=== PATIENT | male | born 1950 | race Hispanic/Latino ===

== ENCOUNTER 2017-05-24 09:22 | Inpatient (IN) | payer BC, MEDICARE ==
--- NOTE | 2017-05-24 09:51 | C.PDOC ---
History Of Present Illness 67 y/o M c PMHx CABG, mitral valve replacement, DM, Afib on warfarin p/w dizziness approximately 1 hour ago. Patient states he was sitting at a low table , stood up, and felt dizzy. He was seen by another staff member who had him sit down and then go to the nurse. He denies chest pain, dyspnea, LOC, fall, recent vomiting/diarrhea, bleeding. Notes he forgot to take DM medication today, FS in nurse's office was 200+. No PMD or science faculty member at this institution. Time Seen by Provider: 05/24/17 09:27 Chief Complaint (Nursing): Dizziness/Lightheaded Past Medical History Vital Signs: Last Vital Signs Temp 97.7 F 05/24/17 09:25 Pulse 58 L 05/24/17 09:25 Resp 18 05/24/17 09:25 BP 138/76 05/24/17 09:25 Pulse Ox 96 05/24/17 09:59 - Medical History PMH: Cardia Arrhythmia, CHF, HTN Family History: States: No Known Family Hx - Social History Hx Alcohol Use: No Hx Substance Use: No - Immunization History Hx Tetanus Toxoid Vaccination: No Hx Influenza Vaccination: Yes (2017) Hx Pneumococcal Vaccination: No Review Of Systems Except As Marked, All Systems Reviewed And Found Negative. Constitutional: Negative for: Fever Cardiovascular: Negative for: Chest Pain Respiratory: Negative for: Shortness of Breath Physical Exam - Physical Exam Additional Physical Exam Comments: Gen: NAD. Patient reproducibly symptomatic with standing. Head: NC/AT Eyes: PERRL ENT: MMM Neck: Supple CV: Radial pulses 2+. Bradycardic. Lungs: CTA bilaterally, no crackles. Abd: Soft. Nontender. Ext: Pitting edema bilateral lower extremities. Skin: Erythematous, papular rash to bilateral forearms. Neuro: Awake, alert, motor 5/5 x 4, sensation to light touch intact. ED Course And Treatment - Laboratory Results Result Diagrams: 05/24/17 10:08 05/24/17 10:08 O2 Sat by Pulse Oximetry: 96 Medical Decision Making Medical Decision Making: EKG Sinus rhythm, 53 bpm, no ST/T wave changes. Impression: 67 y/o M c history of significant cardiac disease, bradycardic with lightheadedness upon standing. Differential includes: Vascular insufficiency, symptomatic bradycardia, dehydration. Plan: Labs, CXR, orthostatic vital signs. SBP drop 20 when standing. CXR IMPRESSION: Prior CABG. No acute infiltrate. Crowding of bronchovascular markings appears at the medial right base, borderline on the left. No definitive infiltrate or pleural effusion. Enzymes negative. Patient notes previous history of CKD. Dr. George accepts patient to medical service, medical records secretary notified. Disposition Discussed With : Han George Jr. Doctor Will See Patient In The: Hospital - Disposition Disposition: HOSPITALIZED Disposition Time: 11:30 Condition: FAIR Forms: [facility] (Peruvian) - Clinical Impression Clinical Impression: Near syncope, Symptomatic bradycardia, Orthostatic dizziness
[2017-05-24 10:20] LABS: BASO # 0.1 K/uL (0.0-0.2); BASO % 0.8 % (0.0-2.0); EOS # 0.2 K/uL (0.0-0.7); EOS % 2.3 % (0.0-4.0); HEMATOCRIT 38.4 % (35.0-51.0); LYMPH # 1.3 K/uL (1.0-4.3); LYMPH % 16.7 % (20.0-40.0); MEAN CELL VOLUME 91.6 fL (80.0-94.0); MEAN CORPUSCULAR HEMOGLOBIN 31.4 pg (27.0-31.0); MEAN CORPUSCULAR HGB CONC 34.3 g/dL (33.0-37.0); MEAN PLATELET VOLUME 9.8 fL (7.2-11.7); MONO # 0.8 K/uL (0.0-0.8); MONO % 9.9 % (0.0-10.0); RED CELL DISTRIBUTION WIDTH 13.5 % (11.5-14.5); WHITE BLOOD COUNT 7.8 K/uL (4.8-10.8)
--- NOTE | 2017-05-24 10:24 | RAD ---
HISTORY: lightheadedness COMPARISON: No prior. FINDINGS: LUNGS: There is some crowding of the bronchovascular markings particularly at the medial right base on the basis of diminished inspiratory volume. PLEURA: No significant pleural effusion identified, no pneumothorax apparent. CARDIOVASCULAR: Sternotomy wires are identified status post CABG. Cardiac size appears normal. There is no pulmonary vascular derangement appreciated. OSSEOUS STRUCTURES: No significant abnormalities. VISUALIZED UPPER ABDOMEN: Normal. OTHER FINDINGS: None. IMPRESSION: Prior CABG. No acute infiltrate. Crowding of bronchovascular markings appears at the medial right base, borderline on the left. No definitive infiltrate or pleural effusion.
[2017-05-24 10:33] LABS: BILIRUBIN,TOTAL 0.7 mg/dL (0.2-1.3); CALCIUM 9.3 mg/dl (8.6-10.4); POTASSIUM 4.7 mmol/L (3.6-5.2); TOTAL PROTEIN 8.7 g/dL (6.3-8.3)
[2017-05-24 10:44] LABS: TROPONIN I 0.013 ng/mL (0.00-0.120)
[2017-05-24 11:56] LABS: RBC URINE < 1 /hpf (0-3); URINE BILIRUBIN NEGATIVE (NEGATIVE); URINE BLOOD NEGATIVE (NEGATIVE); URINE COLOR Yellow (YELLOW); URINE GLUCOSE (UA) NORMAL (Normal); URINE KETONE NEGATIVE (NEGATIVE); URINE LEUKOCYTE ESTERASE NEG Leu/uL (Negative); URINE PROTEIN NEGATIVE (NEGATIVE); URINE UROBILINOGEN NORMAL mg/dL (0.2-1.0); WBC URINE < 1 /hpf (0-5)
[2017-05-24] MEDS ORDERED: Sodium Chloride 0.9% 250 ML IV ONE ×2 (13:04→13:18)
[2017-05-24] MEDS ORDERED: Sodium Chloride 0.9% 1,000 ML IV SCH (13:15)
--- NOTE | 2017-05-24 14:08 | CP.PCM.HP ---
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 The physical security specialist at the school told him he was too unsteady to walk w/o assistance. The administration called the ambulance to transfer him to the hospital. The pateint states this has happened one time prior in which he went home and called his PMD in the morning. He was not hospitlized at that time. He states he has stage 3 CKD and only drinks 2 classes of water a day. Nothing makes it better or worse. He states that he is weak and denies room spinning or lightheadedness. No SOB or chest pain. Can go up 40 stairs without feeling weak. PMH: DM, CAD, CKD, afib PSH: CABG, mitral valve replacement, tricuspid valve repair, tonsils FH: [place]; Mother[place] SH: Hasnt smoked in over 40 years, denies alcohol use, denies drug use Meds: warfarin, uloric, toresmide, tamsulosin, KCl, januvia, cozaar, amiodarone All: None Present on Admission - Present on Admission Any Indicators Present on Admission: No Review of Systems - Review of Systems Review of Systems: per HPI Past Patient History - Past Social History Smoking Status: Never Smoked - CARDIAC Hx Cardia Arrhythmia: Yes Hx Congestive Heart Failure: Yes Hx Hypertension: Yes - RENAL Hx Renal Failure: Yes - ENDOCRINE/METABOLIC Hx Diabetes Mellitus Type 2: Yes - MUSCULOSKELETAL/RHEUMATOLOGICAL Hx Gout: Yes - PSYCHIATRIC Hx Substance Use: No - SURGICAL HISTORY Hx Surgeries: Yes Hx Coronary Artery Bypass Graft: Yes Hx Valve Replacement: Yes Other/Comment: Mitral valve replacement. Tricuspid valve repair - ANESTHESIA Hx Anesthesia: Yes Hx Anesthesia Reactions: No Meds Allergies/Adverse Reactions: Allergies Allergy/AdvReac Type Severity Reaction Status Date / Time No Known Allergies Allergy Unverified 05/24/17 09:37 Physical Exam - Constitutional Appears: Well, Non-toxic, No Acute Distress - Head Exam Head Exam: ATRAUMATIC, NORMAL INSPECTION, NORMOCEPHALIC - Eye Exam Eye Exam: EOMI, Normal appearance, PERRL Pupil Exam: NORMAL ACCOMODATION, PERRL - ENT Exam ENT Exam: Mucous Membranes Moist, Normal Exam - Neck Exam Neck exam: Positive for: Normal Inspection - Respiratory Exam Respiratory Exam: Clear to Auscultation Bilateral, NORMAL BREATHING PATTERN - Cardiovascular Exam Cardiovascular Exam: REGULAR RHYTHM - GI/Abdominal Exam GI & Abdominal Exam: Normal Bowel Sounds, Soft. absent: Distended, Tenderness - Extremities Exam Extremities exam: Positive for: normal inspection. Negative for: joint swelling , tenderness - Back Exam Back exam: NORMAL INSPECTION - Neurological Exam Neurological exam: Alert, CN II-XII Intact, Normal Gait, Oriented x3, Reflexes Normal - Psychiatric Exam Psychiatric exam: Normal Affect, Normal Mood - Skin Skin Exam: Dry, Intact, Normal Color, Warm Results - Vital Signs Recent Vital Signs: Last Vital Signs Temp 97.7 F 05/24/17 09:25 Pulse 55 L 05/24/17 12:38 Resp 12 05/24/17 12:38 BP 135/72 05/24/17 12:38 Pulse Ox 98 05/24/17 12:38 - Labs Result Diagrams: 05/24/17 10:08 05/24/17 10:08 Labs: Laboratory Results - last 24 hr 05/24/17 05/24/17 05/24/17 10:08 10:08 10:08 WBC 7.8 RBC 4.20 L Hgb 13.2 Hct 38.4 MCV 91.6 MCH 31.4 H MCHC 34.3 RDW 13.5 Plt Count 124 L MPV 9.8 Neut % (Auto) 70.3 Lymph % (Auto) 16.7 L [place] % (Auto) 9.9 Eos % (Auto) 2.3 Baso % (Auto) 0.8 Neut # 5.5 Lymph # 1.3 [place] # 0.8 Eos # 0.2 Baso # 0.1 Differential Comment PT 35.0 H* INR 3.0 APTT 46 H Sodium 137 Potassium 4.7 Chloride 98 Carbon Dioxide 29 Anion Gap 15 BUN 45 H Creatinine 2.2 H Est GFR ( Amer) 36 Est GFR (Non-Af Amer) 30 Random Glucose 164 H Calcium 9.3 Total Bilirubin 0.7 AST 34 ALT 52 Alkaline Phosphatase 76 Total Creatine Kinase 169 CK-MB (Mass) 3.44 H Troponin I 0.0130 NT-Pro-B Natriuret Pep 712 Total Protein 8.7 H Albumin 4.4 Globulin 4.3 H Albumin/Globulin Ratio 1.0 Urine Color Urine Clarity Urine pH Ur Specific [place] Urine Protein Urine Glucose (UA) Urine Ketones Urine Blood Urine Nitrate Urine Bilirubin Urine Urobilinogen Ur Leukocyte Esterase Urine WBC (Auto) Urine RBC (Auto) 05/24/17 11:35 WBC RBC Hgb Hct MCV MCH MCHC RDW Plt Count MPV Neut % (Auto) Lymph % (Auto) [place] % (Auto) Eos % (Auto) Baso % (Auto) Neut # Lymph # [place] # Eos # Baso # Differential Comment PT INR APTT Sodium Potassium Chloride Carbon Dioxide Anion Gap BUN Creatinine Est GFR ( Amer) Est GFR (Non-Af Amer) Random Glucose Calcium Total Bilirubin AST ALT Alkaline Phosphatase Total Creatine Kinase CK-MB (Mass) Troponin I NT-Pro-B Natriuret Pep Total Protein Albumin Globulin Albumin/Globulin Ratio Urine Color Yellow Urine Clarity Clear Urine pH 7.0 Ur Specific [place] 1.012 Urine Protein Negative Urine Glucose (UA) Normal Urine Ketones Negative Urine Blood Negative Urine Nitrate Negative Urine Bilirubin Negative Urine Urobilinogen Normal Ur Leukocyte Esterase Neg Urine WBC (Auto) < 1 Urine RBC (Auto) < 1 Assessment & Plan (1) Orthostatic dizziness Assessment and Plan: Cards (Mannie) 250ml fluid bolus NS @ 80 Hold amiodarone Status: Acute Priority: Medium (2) CAD (coronary artery disease) Assessment and Plan: Cozaar 25 PO QD Crestor 10 PO HS Status: Chronic Priority: Medium (3) Afib Assessment and Plan: Sinus ida on ED Hold amiodarone Hold warfarin - INR 3 Status: Acute (4) Diabetes Assessment and Plan: accuchecks ISS High A1C Status: Acute
[2017-05-24] MEDS: (Novolin R) Insulin Human Regular 100 units/ml vial SC SCH (22:47)
--- NOTE | 2017-05-24 23:41 | CP.PCM.CON ---
History of Present Illness - History of Present Illness History of Present Illness: Reason For Consultation: Bradycardia HPI: 67 M with hx of CRHD s/p MVR (Bio), Tricuspid repair, a Fib, Cardiomyopathy admitted for bradycardia and dizziness HR improving after Amio d/raghu by PMD Trop negative Likely medication induced Check Lytes, ECHO and TSH Will follow Past Patient History - Past Medical History & Family History Past Medical History?: Yes - Past Social History Smoking Status: Never Smoked - CARDIAC Hx Cardia Arrhythmia: Yes Hx Congestive Heart Failure: Yes Hx Hypertension: Yes - PULMONARY Hx Respiratory Disorders: No - NEUROLOGICAL Hx Neurological Disorder: No - HEENT Hx HEENT Problems: No - RENAL Hx Renal Failure: Yes - ENDOCRINE/METABOLIC Hx Diabetes Mellitus Type 2: Yes - HEMATOLOGICAL/ONCOLOGICAL Hx Blood Disorders: No - INTEGUMENTARY Hx Dermatological Problems: No - MUSCULOSKELETAL/RHEUMATOLOGICAL Hx Gout: Yes - GASTROINTESTINAL Hx Gastrointestinal Disorders: No - GENITOURINARY/GYNECOLOGICAL Hx Genitourinary Disorders: No - PSYCHIATRIC Hx Substance Use: No - SURGICAL HISTORY Hx Surgeries: Yes Hx Coronary Artery Bypass Graft: Yes Hx Valve Replacement: Yes Other/Comment: Mitral valve replacement. Tricuspid valve repair - ANESTHESIA Hx Anesthesia: Yes Hx Anesthesia Reactions: No Meds Allergies/Adverse Reactions: Allergies Allergy/AdvReac Type Severity Reaction Status Date / Time No Known Allergies Allergy Unverified 05/24/17 09:37 - Medications Medications: Current Medications Acetaminophen (Tylenol 325mg Tab) 650 mg PO Q6 PRN PRN Reason: Pain, moderate (4-7) Docusate Sodium (Colace) 100 mg PO BID PRN PRN Reason: Constipation Sodium Chloride (Sodium Chloride 0.9%) 1,000 mls @ 80 mls/hr IV .[id number] [facility] Last Admin: 05/24/17 14:18 Dose: 80 mls/hr Ibuprofen (Motrin Tab) 400 mg PO Q6 PRN PRN Reason: Fever >100.4 F Insulin Human Regular (Novolin R) 0 unit SC ACHS [facility] PRN Reason: Protocol Last Admin: 05/24/17 22:47 Dose: Not Given Losartan Potassium (Cozaar) 25 mg PO DAILY [facility] Last Admin: 05/24/17 13:25 Dose: 25 mg Ondansetron HCl (Zofran Inj) 4 mg IVP Q6 PRN PRN Reason: Nausea/Vomiting Pneumococcal Polyvalent Vaccine (Pneumovax 23 Vaccine) 0.5 ml SC .ONCE ONE Stop: 05/26/17 14:01 Rosuvastatin Calcium (Crestor) 10 mg PO HS [facility] Last Admin: 05/24/17 22:48 Dose: 10 mg Results - Vital Signs Recent Vital Signs: Last Vital Signs Temp 97.6 F 05/24/17 15:12 Pulse 51 L 05/24/17 15:12 Resp 20 05/24/17 15:12 BP 114/66 05/24/17 15:12 Pulse Ox 97 05/24/17 15:12 - Labs Result Diagrams: 05/24/17 10:08 05/24/17 10:08 Labs: Laboratory Results - last 24 hr 05/24/17 05/24/17 05/24/17 09:30 10:08 10:08 WBC 7.8 RBC 4.20 L Hgb 13.2 Hct 38.4 MCV 91.6 MCH 31.4 H MCHC 34.3 RDW 13.5 Plt Count 124 L MPV 9.8 Neut % (Auto) 70.3 Lymph % (Auto) 16.7 L [place] % (Auto) 9.9 Eos % (Auto) 2.3 Baso % (Auto) 0.8 Neut # 5.5 Lymph # 1.3 [place] # 0.8 Eos # 0.2 Baso # 0.1 Differential Comment PT 35.0 H* INR 3.0 APTT 46 H Sodium Potassium Chloride Carbon Dioxide Anion Gap BUN Creatinine Est GFR ( Amer) Est GFR (Non-Af Amer) POC Glucose (mg/dL) 194 H Random Glucose Calcium Total Bilirubin AST ALT Alkaline Phosphatase Total Creatine Kinase CK-MB (Mass) Troponin I NT-Pro-B Natriuret Pep Total Protein Albumin Globulin Albumin/Globulin Ratio Urine Color Urine Clarity Urine pH Ur Specific [place] Urine Protein Urine Glucose (UA) Urine Ketones Urine Blood Urine Nitrate Urine Bilirubin Urine Urobilinogen Ur Leukocyte Esterase Urine WBC (Auto) Urine RBC (Auto) 05/24/17 05/24/17 05/24/17 10:08 11:35 16:47 WBC RBC Hgb Hct MCV MCH MCHC RDW Plt Count MPV Neut % (Auto) Lymph % (Auto) [place] % (Auto) Eos % (Auto) Baso % (Auto) Neut # Lymph # [place] # Eos # Baso # Differential Comment PT INR APTT Sodium 137 Potassium 4.7 Chloride 98 Carbon Dioxide 29 Anion Gap 15 BUN 45 H Creatinine 2.2 H Est GFR ( Amer) 36 Est GFR (Non-Af Amer) 30 POC Glucose (mg/dL) 129 H Random Glucose 164 H Calcium 9.3 Total Bilirubin 0.7 AST 34 ALT 52 Alkaline Phosphatase 76 Total Creatine Kinase 169 CK-MB (Mass) 3.44 H Troponin I 0.0130 NT-Pro-B Natriuret Pep 712 Total Protein 8.7 H Albumin 4.4 Globulin 4.3 H Albumin/Globulin Ratio 1.0 Urine Color Yellow Urine Clarity Clear Urine pH 7.0 Ur Specific [place] 1.012 Urine Protein Negative Urine Glucose (UA) Normal Urine Ketones Negative Urine Blood Negative Urine Nitrate Negative Urine Bilirubin Negative Urine Urobilinogen Normal Ur Leukocyte Esterase Neg Urine WBC (Auto) < 1 Urine RBC (Auto) < 1 05/24/17 21:37 WBC RBC Hgb Hct MCV MCH MCHC RDW Plt Count MPV Neut % (Auto) Lymph % (Auto) [place] % (Auto) Eos % (Auto) Baso % (Auto) Neut # Lymph # [place] # Eos # Baso # Differential Comment PT INR APTT Sodium Potassium Chloride Carbon Dioxide Anion Gap BUN Creatinine Est GFR ( Amer) Est GFR (Non-Af Amer) POC Glucose (mg/dL) 128 H Random Glucose Calcium Total Bilirubin AST ALT Alkaline Phosphatase Total Creatine Kinase CK-MB (Mass) Troponin I NT-Pro-B Natriuret Pep Total Protein Albumin Globulin Albumin/Globulin Ratio Urine Color Urine Clarity Urine pH Ur Specific [place] Urine Protein Urine Glucose (UA) Urine Ketones Urine Blood Urine Nitrate Urine Bilirubin Urine Urobilinogen Ur Leukocyte Esterase Urine WBC (Auto) Urine RBC (Auto)
[2017-05-25] MEDS: (Novolin R) Insulin Human Regular 100 units/ml vial SC SCH ×4 (08:30→21:17)
[2017-05-25 08:53] LABS: BASO # 0.1 K/uL (0.0-0.2); BASO % 0.8 % (0.0-2.0); EOS # 0.3 K/uL (0.0-0.7); LYMPH # 1.5 K/uL (1.0-4.3); LYMPH % 18.5 % (20.0-40.0); MEAN CELL VOLUME 92.9 fL (80.0-94.0); MEAN CORPUSCULAR HEMOGLOBIN 31.3 pg (27.0-31.0); MEAN CORPUSCULAR HGB CONC 33.7 g/dL (33.0-37.0); MEAN PLATELET VOLUME 10.2 fL (7.2-11.7); MONO # 0.8 K/uL (0.0-0.8); MONO % 9.5 % (0.0-10.0); RED CELL DISTRIBUTION WIDTH 13.2 % (11.5-14.5); WHITE BLOOD COUNT 8.3 K/uL (4.8-10.8)
[2017-05-25 08:58] LABS: INR 2.8
[2017-05-25 09:08] LABS: ALB/GLOB RATIO 1.3 (1.0-2.1); CALCIUM 8.3 mg/dl (8.6-10.4); POTASSIUM 4.7 mmol/L (3.6-5.2); TOTAL PROTEIN 6.9 g/dL (6.3-8.3)
[2017-05-25] MEDS ORDERED: Perflutren Lipid Microsphere 1.5 ML SUS IV ONE (09:14)
[2017-05-25 10:17] LABS: THYROID STIMULATING HORMONE 4.02 mIU/L (0.46-4.68)
[2017-05-25] MEDS ORDERED: Sodium Chloride 0.9% 1,000 ML IV SCH (10:31)
--- NOTE | 2017-05-25 10:36 | CP.PCM.PN ---
Subjective - Date & Time of Evaluation Date of Evaluation: 05/25/17 Time of Evaluation: 10:31 - Subjective Subjective: Patient seen and examined at bedside admits to 15 lb WG this summer occasional diarrhea, no constipation no heat or cold intolerance Admits to fatigue, weakness over this past summer No other complaints at this time Objective - Vital Signs/Intake and Output Vital Signs (last 24 hours): Temp Pulse Resp BP Pulse Ox 98.1 F 47 L 20 125/64 96 05/25/17 10:30 05/25/17 10:30 05/25/17 10:30 05/25/17 10:30 05/25/17 10:30 Intake and Output: 05/25/17 05/25/17 06:59 18:59 Intake Total 1440 Output Total 300 Balance 1140 - Medications Medications: Current Medications Acetaminophen (Tylenol 325mg Tab) 650 mg PO Q6 PRN PRN Reason: Pain, moderate (4-7) Docusate Sodium (Colace) 100 mg PO BID PRN PRN Reason: Constipation Sodium Chloride (Sodium Chloride 0.9%) 1,000 mls @ 100 mls/hr IV .Q10H [facility] Ibuprofen (Motrin Tab) 400 mg PO Q6 PRN PRN Reason: Fever >100.4 F Insulin Human Regular (Novolin R) 0 unit SC ACHS [facility] PRN Reason: Protocol Last Admin: 05/25/17 08:30 Dose: Not Given Losartan Potassium (Cozaar) 25 mg PO DAILY [facility] Last Admin: 05/24/17 13:25 Dose: 25 mg Ondansetron HCl (Zofran Inj) 4 mg IVP Q6 PRN PRN Reason: Nausea/Vomiting Pneumococcal Polyvalent Vaccine (Pneumovax 23 Vaccine) 0.5 ml SC .ONCE ONE Stop: 05/26/17 14:01 Rosuvastatin Calcium (Crestor) 10 mg PO HS [facility] Last Admin: 05/24/17 22:48 Dose: 10 mg - Labs Labs: 05/25/17 08:38 05/25/17 08:38 PT 32.7 SECONDS (9.7-12.2) H* 05/25/17 08:38 INR 2.8 05/25/17 08:38 APTT 46 SECONDS (21-34) H 05/24/17 10:08 - Constitutional Appears: Well, Non-toxic - Head Exam Head Exam: ATRAUMATIC, NORMAL INSPECTION, NORMOCEPHALIC - Eye Exam Eye Exam: EOMI Pupil Exam: NORMAL ACCOMODATION - ENT Exam ENT Exam: Mucous Membranes Moist - Respiratory Exam Respiratory Exam: Clear to Ausculation Bilateral, NORMAL BREATHING PATTERN - Cardiovascular Exam Cardiovascular Exam: REGULAR RHYTHM - GI/Abdominal Exam GI & Abdominal Exam: Soft, Normal Bowel Sounds. absent: Distended, Tenderness - Extremities Exam Extremities Exam: Full ROM, Normal Capillary Refill, Normal Inspection. absent : Joint Swelling, Pedal Edema - Back Exam Back Exam: NORMAL INSPECTION - Neurological Exam Neurological Exam: Alert, Awake, CN II-XII Intact, Normal Gait, Oriented x3 - Psychiatric Exam Psychiatric exam: Normal Affect, Normal Mood - Skin Skin Exam: Dry, Intact, Normal Color, Warm Assessment and Plan (1) Orthostatic dizziness Assessment & Plan: Cards (Mannie) 250ml fluid bolus NS @ 100 amiodarone Orthostatic vitals - F/U Status: Acute (2) CAD (coronary artery disease) Assessment & Plan: Cozaar 25 PO QD - hold Crestor 10 PO HS Status: Chronic (3) Afib Assessment & Plan: Sinus ida on ED Hold amiodarone INR 2.8 Status: Acute (4) Diabetes Assessment & Plan: accuchecks ISS High A1C 7.6 Status: Chronic
[2017-05-25] MEDS ORDERED: Phytonadione 2.5 MG/0.5 TAB TAB PO ONE (15:00)
[2017-05-25] MEDS ORDERED: Levothyroxine 50 MCG TAB PO ONE (15:00)
--- NOTE | 2017-05-25 15:15 | CP.PCM.PN ---
<Rossy WILLISKassie K - Last Filed: 05/25/17 15:41> Subjective - Date & Time of Evaluation Date of Evaluation: 05/25/17 Time of Evaluation: 10:00 - Subjective Subjective: Cardiology progress note for Dr. Chand Patient is a 67 year old male with PMHx CKD, DM, CAD, gout (last attack ) Afib s/p cardioversion, CABG x3 at [facility] in 08/2014, mitral valve replacement with bio prosthetic valve, tricuspid valve repair who presented with symptomatic bradycardia. Patient follows wit Dr. Blankenship for outpatient cardiology. Patient states last cardiology visit was 2-3 weeks ago and at that time his only complaint was his blood pressure going low. Patient reports lowest heart rate he recalls was approximately 60bpm. Patient reports increasing fatigue since the summer and the need to take naps almost daily. Patient reports multiple episodes of feeling fatigued after walking up 3-4 steps. Patient also reports loose stools several times per week. Patient states he is compliant with torsemide therapy at home and weighs himself daily. Patient states he had increased appetite over the summer and gained 15-20 pounds but reports recent weight loss of 5 pounds and states that he does not increase torsemide if he gains weight. Patient reports feeling light headed yesterday but denies room spinning. Patient denies feeling light headed today but admits he is not getting out of bed much. CT surgeon: Dr. Barnes Outpt Cardio: Dr. Blankenship Outpt Nephro: Dr. Chioma Krishnamurthy Objective - Vital Signs/Intake and Output Vital Signs (last 24 hours): Temp Pulse Resp BP Pulse Ox 98.1 F 47 L 20 125/64 96 05/25/17 10:30 05/25/17 10:30 05/25/17 10:30 05/25/17 10:30 05/25/17 10:30 Intake and Output: 05/25/17 05/25/17 06:59 18:59 Intake Total 1440 Output Total 300 Balance 1140 - Medications Medications: Current Medications Acetaminophen (Tylenol 325mg Tab) 650 mg PO Q6 PRN PRN Reason: Pain, moderate (4-7) Docusate Sodium (Colace) 100 mg PO BID PRN PRN Reason: Constipation Famotidine (Pepcid) 20 mg PO DAILY [facility] Sodium Chloride (Sodium Chloride 0.9%) 1,000 mls @ 100 mls/hr IV .Q10H [facility] Last Admin: 05/25/17 10:35 Dose: 100 mls/hr Insulin Human Regular (Novolin R) 0 unit SC ACHS [facility] PRN Reason: Protocol Last Admin: 05/25/17 13:09 Dose: 2 unit Losartan Potassium (Cozaar) 25 mg PO DAILY [facility] Last Admin: 05/25/17 10:40 Dose: Not Given Ondansetron HCl (Zofran Inj) 4 mg IVP Q6 PRN PRN Reason: Nausea/Vomiting Pneumococcal Polyvalent Vaccine (Pneumovax 23 Vaccine) 0.5 ml SC .ONCE ONE Stop: 05/26/17 14:01 Rosuvastatin Calcium (Crestor) 10 mg PO HS [facility] Last Admin: 05/24/17 22:48 Dose: 10 mg - Labs Labs: 05/25/17 08:38 05/25/17 08:38 PT 32.7 SECONDS (9.7-12.2) H* 05/25/17 08:38 INR 2.8 05/25/17 08:38 APTT 46 SECONDS (21-34) H 05/24/17 10:08 - Constitutional Appears: Non-toxic, No Acute Distress - Head Exam Head Exam: ATRAUMATIC, NORMOCEPHALIC - Eye Exam Eye Exam: EOMI - ENT Exam ENT Exam: Mucous Membranes Moist - Respiratory Exam Respiratory Exam: Clear to Ausculation Bilateral Additional comments: well-healed sternotomy scar - Cardiovascular Exam Cardiovascular Exam: Bradycardia, +S1, +S2 - GI/Abdominal Exam GI & Abdominal Exam: Soft, Normal Bowel Sounds - Extremities Exam Additional comments: trace pedal edema - Neurological Exam Neurological Exam: Alert, Awake, Oriented x3 - Psychiatric Exam Psychiatric exam: Normal Affect - Skin Skin Exam: Warm Assessment and Plan - Assessment and Plan (Free Text) Assessment: 67 year old male with PMHx CKD, DM, CAD, gout (last attack ) Afib s/p cardioversion, CABG x3 at [facility] in 2014, mitral valve replacement with bio prosthetic valve, tricuspid valve repair who presented 05/24 with symptomatic bradycardia Symptomatic Bradycardia echo reviewed, EF approximately 50%, valves functioning well continue IVF hold amiodarone and antihypertensive medications patient reports history of being on beta ivanna and it being discontinued due to bradycardia Patient will need EP evaluation for permanent pacemaker case discussed with 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 Blankenship, who requested EP eval by Dr. Pina Will give stat dose 50mcg synthroid as TSH 4.02 (high end normal), monitor response, recommend continuing if no adverse effects Will stop coumadin and also give one stat dose of vitamin K 10mg PO as INR is 2.8 today once INR <2, recommend starting heparin drip in case patient needs transvenous pacing Plan as per Dr. Chand <Edvin Chand - Last Filed: 05/25/17 21:20> Objective - Vital Signs/Intake and Output Vital Signs (last 24 hours): Temp Pulse Resp BP Pulse Ox 97.5 F L 44 L 18 150/71 96 05/25/17 15:25 05/25/17 18:00 05/25/17 15:25 05/25/17 15:25 05/25/17 15:25 Intake and Output: 05/25/17 05/26/17 18:59 06:59 Intake Total 1200 Output Total 650 Balance 550 - Medications Medications: Current Medications Acetaminophen (Tylenol 325mg Tab) 650 mg PO Q6 PRN PRN Reason: Pain, moderate (4-7) Docusate Sodium (Colace) 100 mg PO BID PRN PRN Reason: Constipation Famotidine (Pepcid) 20 mg PO DAILY [facility] Insulin Human Regular (Novolin R) 0 unit SC ACHS [facility] PRN Reason: Protocol Last Admin: 05/25/17 21:17 Dose: Not Given Losartan Potassium (Cozaar) 25 mg PO DAILY [facility] Last Admin: 05/25/17 10:40 Dose: Not Given Ondansetron HCl (Zofran Inj) 4 mg IVP Q6 PRN PRN Reason: Nausea/Vomiting Pneumococcal Polyvalent Vaccine (Pneumovax 23 Vaccine) 0.5 ml SC .ONCE ONE Stop: 05/26/17 14:01 Rosuvastatin Calcium (Crestor) 10 mg PO HS [facility] Last Admin: 05/24/17 22:48 Dose: 10 mg - Labs Labs: 05/25/17 08:38 05/25/17 08:38 PT 32.7 SECONDS (9.7-12.2) H* 05/25/17 08:38 INR 2.8 05/25/17 08:38 APTT 46 SECONDS (21-34) H 05/24/17 10:08 Assessment and Plan - Assessment and Plan (Free Text) Assessment: Patient personally seen and evaluated by me Likely needs PPM due to hx of CAD, A Fib and the need of B blockers EP eval by Dr. Robles camacho
--- NOTE | 2017-05-25 18:04 | CARD ---
APPROVED REPORT EXAM: Two-dimensional and M-mode echocardiogram with Doppler, color Doppler with contrast. Other Information Quality : TDSRhythm : Atrial Fibrillation INDICATION Cardiac Disease: CAD Syncope CABG RISK FACTORS Diabetes 2D DIMENSIONS IVSd1.1 (0.7-1.1cm)LVDd4.8 (3.9-5.9cm) PWd1.0 (0.7-1.1cm)LVDs2.8 (2.5-4.0cm) FS (%) 42.2 %LVEF (%)50.0 (>50%) M-Mode DIMENSIONS Left Atrium (MM)4.57 (2.5-4.0cm)Aortic Root4.03 (2.2-3.7cm) Aortic Cusp Exc.2.40 (1.5-2.0cm) Mitral Valve MV E Vwbkhhbo302.0cm/sMV E Peak Gr.17mmHgMV A Yfcnykaf217.0cm/s MV E Mean Gr.6mmHgMV [id number] ratio1.3 MVA (PHT)1.53cm2 TDI E/Lateral E'0.0E/Medial E'0.0 LEFT VENTRICLE The left ventricle is normal size. There is normal left ventricular wall thickness. Left ventricle systolic function is borderline. There is normal LV segmental wall motion. Transmitral Doppler flow pattern is Grade II-pseudonormal filling dynamics. RIGHT VENTRICLE The right ventricle is normal size. There is normal right ventricular wall thickness. The right ventricular systolic function is normal. ATRIA The left atrium is moderately dilated. The right atrium size is normal. AORTIC VALVE The aortic valve is mildly thickened. No aortic regurgitation is present. There is no aortic valvular stenosis. MITRAL VALVE There is mild mitral valve stenosis. There is no mitral valve regurgitation noted. There is a bioprosthetic mitral valve. TRICUSPID VALVE There is no tricuspid valve regurgitation noted. PULMONIC VALVE There is trace pulmonic valvular regurgitation. GREAT VESSELS The aortic root is mildly enlarged. <Conclusion> There is a bioprosthetic mitral valve. There is mild mitral valve stenosis. The aortic root is mildly enlarged. The left ventricle is normal size. There is normal left ventricular wall thickness. Left ventricle systolic function is borderline. There is normal LV segmental wall motion.
--- NOTE | 2017-05-25 20:09 | CP.PCM.CON ---
History of Present Illness - History of Present Illness History of Present Illness: Dr. Chand has asked me to see this patient with bradycardia. Regular licensed weigher is Dr. Meet Blankenship This is a 67 yo man with a CV history significant for CAD, DC c/b cardiogenic shock, MR and TR, CABG/MVreplace/TVrepair in 2014, PAF chronically on amiodarone and anticoagulation, mildly reduced EF with CHF class I-II symptoms. In the past week has had dizziness intermittently lasting seconds at a time. While at work yesterday, when he stood up from lunch he felt profoundly dizzy and nearly collapsed. No modifying factors. Duration minutes. No associated LE edema. Found to be markedly bradycardic in the ER. TSH is normal. Telemetry shows occasional marked sinus bradycardia with junctional escape and frequent pauses. PMedHx: CAD, CABH, rheumatic fever, HTN, hypercholesterolemia, severe MR s/p MVR , TV s/p tricuspid valve repair, PAX dx 2014, DM, CRI, BPH, s/p cataract, retinoipathy, history of DC SocialHx: No tobacco or alcohol use FamilyHx: No premature CAD or sudden deatj tele: 05/25/17: Marked sinus bradycardia with junctional escape EC05/24/17: SB at 53 9 204/102/444 RVCD. 11/17/16: atrial flutter-atypical with HR 76 Echo 05/25/17 TTE LA 4.6 [place] LV function LAE bio MVR looks good 11/28/16 VANDANA EF 35-40% No ELYSIA thrombus bio MVR looks good. CV to SR 10/26/16 LA 4.2 Bio MVR looks good. EF 45-50% Cath 09/02/14 1. Left main. The left main arises from the left sinus of Valsalva, This gives rise to left anterior descending coronary artery and left circumflex coronary artery. no sig. lesion noted 2. Left anterior descending coronary artery arises from the left sinus of Valsalva, gives rise to diagonal branches and septal branches. The proximal portion of the left anterior descending coronary shows significant 95 to 99% long lesion, and midportion of the LAD also is characterized by significant lesion about 80%, and distally there is also about 70% lesion as the vessel tapers to the apex of the heart. 3. The circumflex coronary artery arises from the left sinus of Valsalva. It gives rise to the marginal branches, and the AV groove branch. This vessel is noted to be significantly diseased about 80-90- in the proximal portion and also at the take off of the first marginal branch. 4 The right coronary artery arises from the right sinus of Valsalva. It is a dominant vessel. significant ectasia was noted in the body of this vessel There was about 50 to 60% lesion noted in the take off of the PLV branch. Left ventriculography was not performed. Stress 12/06/16 Fixed inf and inferolateral defects EF 44% Review of Systems - Constitutional Constitutional: absent: Anorexia, Chills - EENT Eyes: absent: Blind Spots, Blurred Vision Ears: absent: Decreased Hearing Nose/Mouth/Throat: absent: Epistaxis, Nasal Congestion - Cardiovascular Cardiovascular: Slow Heart Rate. absent: Chest Pain, Palpitations - Respiratory Respiratory: absent: Cough, Dyspnea - Gastrointestinal Gastrointestinal: absent: Abdominal Pain - Genitourinary Genitourinary: absent: Change in Urinary Stream - Musculoskeletal Musculoskeletal: Abnormal Gait. absent: Limited Range of Motion - Integumentary Integumentary: absent: Acne, Bleeding Lesions - Neurological Neurological: absent: Abnormal Gait, Syncope, Tingling - Psychiatric Psychiatric: absent: As Per HPI, Abnormal Sleep Pattern, Anhedonia, Anxiety, Auditory Hallucinations, Behavioral Changes, Change in Appetite, Change in Libido, Confusion, Depression, Difficulty Concentrating, Hallucinations, Homicidal Ideation, Hopelessness, Irritability, Memory Loss, Mood Swings, Panic Attacks, Paranoia, Suicidal Ideation, Visual Hallucinations, Tactile Hallucinations, Other - Endocrine Endocrine: absent: Change in Body Appearance, Cold Intolorance, Excessive Sweating, Heat Intolorance Past Patient History - Past Medical History & Family History Past Medical History?: Yes - Past Social History Smoking Status: Never Smoked - CARDIAC Hx Cardia Arrhythmia: Yes Hx Congestive Heart Failure: Yes Hx Hypertension: Yes - PULMONARY Hx Respiratory Disorders: No - NEUROLOGICAL Hx Neurological Disorder: No - HEENT Hx HEENT Problems: No - RENAL Hx Renal Failure: Yes - ENDOCRINE/METABOLIC Hx Diabetes Mellitus Type 2: Yes - HEMATOLOGICAL/ONCOLOGICAL Hx Blood Disorders: No - INTEGUMENTARY Hx Dermatological Problems: No - MUSCULOSKELETAL/RHEUMATOLOGICAL Hx Gout: Yes - GASTROINTESTINAL Hx Gastrointestinal Disorders: No - GENITOURINARY/GYNECOLOGICAL Hx Genitourinary Disorders: No - PSYCHIATRIC Hx Substance Use: No - SURGICAL HISTORY Hx Surgeries: Yes Hx Coronary Artery Bypass Graft: Yes Hx Valve Replacement: Yes Other/Comment: Mitral valve replacement. Tricuspid valve repair - ANESTHESIA Hx Anesthesia: Yes Hx Anesthesia Reactions: No Meds Allergies/Adverse Reactions: Allergies Allergy/AdvReac Type Severity Reaction Status Date / Time No Known Allergies Allergy Unverified 05/24/17 09:37 - Medications Medications: Current Medications Acetaminophen (Tylenol 325mg Tab) 650 mg PO Q6 PRN PRN Reason: Pain, moderate (4-7) Docusate Sodium (Colace) 100 mg PO BID PRN PRN Reason: Constipation Famotidine (Pepcid) 20 mg PO DAILY [facility] Insulin Human Regular (Novolin R) 0 unit SC ACHS KALINA PRN Reason: Protocol Last Admin: 05/25/17 17:40 Dose: Not Given Losartan Potassium (Cozaar) 25 mg PO DAILY [facility] Last Admin: 05/25/17 10:40 Dose: Not Given Ondansetron HCl (Zofran Inj) 4 mg IVP Q6 PRN PRN Reason: Nausea/Vomiting Pneumococcal Polyvalent Vaccine (Pneumovax 23 Vaccine) 0.5 ml SC .ONCE ONE Stop: 05/26/17 14:01 Rosuvastatin Calcium (Crestor) 10 mg PO HS [facility] Last Admin: 05/24/17 22:48 Dose: 10 mg Physical Exam - Constitutional Appears: Non-toxic, No Acute Distress - Head Exam Head Exam: ATRAUMATIC, NORMAL INSPECTION, NORMOCEPHALIC - Eye Exam Eye Exam: EOMI, Normal appearance, PERRL Pupil Exam: NORMAL ACCOMODATION, PERRL - ENT Exam ENT Exam: Mucous Membranes Moist, Normal Exam - Neck Exam Neck exam: Positive for: Normal Inspection - Respiratory Exam Respiratory Exam: Clear to Auscultation Bilateral, NORMAL BREATHING PATTERN - Cardiovascular Exam Cardiovascular Exam: REGULAR RHYTHM. absent: Systolic Murmur - Extremities Exam Extremities exam: Negative for: normal inspection, pedal edema - Neurological Exam Neurological exam: Alert Results - Vital Signs Recent Vital Signs: Last Vital Signs Temp 97.5 F L 05/25/17 15:25 Pulse 44 L 05/25/17 18:00 Resp 18 05/25/17 15:25 BP 150/71 05/25/17 15:25 Pulse Ox 96 05/25/17 15:25 - Labs Result Diagrams: 05/25/17 08:38 05/25/17 08:38 Labs: Laboratory Results - last 24 hr 05/24/17 05/25/17 05/25/17 21:37 06:38 08:38 WBC RBC Hgb Hct MCV MCH MCHC RDW Plt Count MPV Neut % (Auto) Lymph % (Auto) [place] % (Auto) Eos % (Auto) Baso % (Auto) Neut # Lymph # [place] # Eos # Baso # Differential Comment PT 32.7 H* INR 2.8 Sodium Potassium Chloride Carbon Dioxide Anion Gap BUN Creatinine Est GFR ( Amer) Est GFR (Non-Af Amer) POC Glucose (mg/dL) 128 H 145 H Random Glucose Hemoglobin A1c Calcium Total Bilirubin AST ALT Alkaline Phosphatase Total Protein Albumin Globulin Albumin/Globulin Ratio TSH 3rd Generation 05/25/17 05/25/17 05/25/17 08:38 08:38 08:38 WBC 8.3 RBC 4.10 L Hgb 12.8 Hct 38.0 MCV 92.9 MCH 31.3 H MCHC 33.7 RDW 13.2 Plt Count 127 L MPV 10.2 Neut % (Auto) 68.2 Lymph % (Auto) 18.5 L [place] % (Auto) 9.5 Eos % (Auto) 3.0 Baso % (Auto) 0.8 Neut # 5.6 Lymph # 1.5 [place] # 0.8 Eos # 0.3 Baso # 0.1 Differential Comment PT INR Sodium 135 Potassium 4.7 Chloride 101 Carbon Dioxide 24 Anion Gap 15 BUN 43 H Creatinine 2.0 H Est GFR ( Amer) 41 Est GFR (Non-Af Amer) 34 POC Glucose (mg/dL) Random Glucose 118 H Hemoglobin A1c 7.6 H Calcium 8.3 L Total Bilirubin 1.0 AST 31 ALT 46 Alkaline Phosphatase 59 Total Protein 6.9 Albumin 3.9 Globulin 2.9 Albumin/Globulin Ratio 1.3 TSH 3rd Generation 4.02 05/25/17 05/25/17 11:15 16:28 WBC RBC Hgb Hct MCV MCH MCHC RDW Plt Count MPV Neut % (Auto) Lymph % (Auto) [place] % (Auto) Eos % (Auto) Baso % (Auto) Neut # Lymph # [place] # Eos # Baso # Differential Comment PT INR Sodium Potassium Chloride Carbon Dioxide Anion Gap BUN Creatinine Est GFR ( Amer) Est GFR (Non-Af Amer) POC Glucose (mg/dL) 159 H 116 H Random Glucose Hemoglobin A1c Calcium Total Bilirubin AST ALT Alkaline Phosphatase Total Protein Albumin Globulin Albumin/Globulin Ratio TSH 3rd Generation Assessment & Plan - Assessment and Plan (Free Text) Assessment: 67 yo man with history of CAD, CABG, h/o MVR, DC,PAF on amiodarone and coumadin , HTN, hypercholesterolemia, DM and CRI. Admitted with symptoamtic bradycardia. Bradycardia: Schedule for PPM tomorrow. NPO after midnight. Hold coumadin. 1mg oral vitamin K in the morning. HTN: stable CAD: stable PAF: continue amiodarone once daily.
--- NOTE | 2017-05-25 22:27 | CARD ---
APPROVED REPORT EKG Measurement Heart [id number] <Conclusion> Sinus bradycardia Nonspecific ST and T wave abnormality Abnormal ECG
[2017-05-26] MEDS ORDERED: Sodium Chloride 0.9% 1,000 ML IV SCH (07:30)
--- NOTE | 2017-05-26 07:36 | CP.PCM.PN ---
Subjective - Date & Time of Evaluation Date of Evaluation: 05/26/17 Time of Evaluation: 07:33 - Subjective Subjective: Patient see and examined Doing well with no complaints a this time Discussed pacemaker procedure today. Should go this afternoon Objective - Vital Signs/Intake and Output Vital Signs (last 24 hours): Temp Pulse Resp BP Pulse Ox 97.8 F 48 L 20 142/72 95 05/26/17 04:00 05/26/17 04:28 05/26/17 04:00 05/26/17 04:00 05/26/17 04:00 - Medications Medications: Current Medications Acetaminophen (Tylenol 325mg Tab) 650 mg PO Q6 PRN PRN Reason: Pain, moderate (4-7) Amiodarone HCl (Cordarone) 200 mg PO DAILY [facility] Docusate Sodium (Colace) 100 mg PO BID PRN PRN Reason: Constipation Famotidine (Pepcid) 20 mg PO DAILY REPLACED BY [facility] Sodium Chloride (Sodium Chloride 0.9%) 1,000 mls @ 100 mls/hr IV .Q10H REPLACED BY [facility] Insulin Human Regular (Novolin R) 0 unit SC ACHS KALINA PRN Reason: Protocol Last Admin: 05/25/17 21:17 Dose: Not Given Losartan Potassium (Cozaar) 25 mg PO DAILY [facility] Last Admin: 05/25/17 10:40 Dose: Not Given Ondansetron HCl (Zofran Inj) 4 mg IVP Q6 PRN PRN Reason: Nausea/Vomiting Pneumococcal Polyvalent Vaccine (Pneumovax 23 Vaccine) 0.5 ml SC .ONCE ONE Stop: 05/26/17 14:01 Rosuvastatin Calcium (Crestor) 10 mg PO HS REPLACED BY [facility] Last Admin: 05/25/17 21:17 Dose: 10 mg - Labs Labs: 05/25/17 08:38 05/25/17 08:38 PT 32.7 SECONDS (9.7-12.2) H* 05/25/17 08:38 INR 2.8 05/25/17 08:38 APTT 46 SECONDS (21-34) H 05/24/17 10:08 - Additional Findings Additional findings: - Constitutional Appears: Well, Non-toxic - Head Exam Head Exam: ATRAUMATIC, NORMAL INSPECTION, NORMOCEPHALIC - Eye Exam Eye Exam: EOMI Pupil Exam: NORMAL ACCOMODATION - ENT Exam ENT Exam: Mucous Membranes Moist - Respiratory Exam Respiratory Exam: Clear to Ausculation Bilateral, NORMAL BREATHING PATTERN - Cardiovascular Exam Cardiovascular Exam: REGULAR RHYTHM - GI/Abdominal Exam GI & Abdominal Exam: Soft, Normal Bowel Sounds. absent: Distended, Tenderness - Extremities Exam Extremities Exam: Full ROM, Normal Capillary Refill, Normal Inspection. absent : Joint Swelling, Pedal Edema - Back Exam Back Exam: NORMAL INSPECTION - Neurological Exam Neurological Exam: Alert, Awake, CN II-XII Intact, Normal Gait, Oriented x3 - Psychiatric Exam Psychiatric exam: Normal Affect, Normal Mood - Skin Skin Exam: Dry, Intact, Normal Color, Warm Assessment and Plan (1) Orthostatic dizziness Assessment & Plan: Cards (Mannie) Cards EP (DoBesh) * PPM today NS @ 100 amiodarone 200 PO QD * was hypothyroid, gave one time synthroid 50 Orthostatic vitals * laying - 132 * sitting - 136 * standing - 119 Status: Acute (2) CAD (coronary artery disease) Assessment & Plan: Cozaar 25 PO QD - hold Crestor 10 PO HS Status: Chronic (3) Afib Assessment & Plan: Sinus ida on ED Hold amiodarone INR 2.8 Status: Chronic (4) Diabetes Assessment & Plan: accuchecks ISS High A1C 7.6 Status: Chronic
[2017-05-26 07:48] LABS: EOS # 0.2 K/uL (0.0-0.7); MEAN CORPUSCULAR HEMOGLOBIN 31.4 pg (27.0-31.0); MEAN CORPUSCULAR HGB CONC 34.2 g/dL (33.0-37.0); MONO # 0.7 K/uL (0.0-0.8)
[2017-05-26 07:54] LABS: BASO # 0.1 K/uL (0.0-0.2); BASO % 0.7 % (0.0-2.0); EOS % 3.5 % (0.0-4.0); HEMATOCRIT 37.9 % (35.0-51.0); LYMPH # 1.2 K/uL (1.0-4.3); LYMPH % 16.9 % (20.0-40.0); MEAN PLATELET VOLUME 9.9 fL (7.2-11.7); MONO % 10.3 % (0.0-10.0); RED CELL DISTRIBUTION WIDTH 13.3 % (11.5-14.5); WHITE BLOOD COUNT 7.1 K/uL (4.8-10.8)
[2017-05-26 07:59] LABS: INR 1.7
[2017-05-26] MEDS: (Novolin R) Insulin Human Regular 100 units/ml vial SC SCH ×2 (08:11→12:30)
[2017-05-26 08:31] LABS: ALB/GLOB RATIO 1.3 (1.0-2.1); BILIRUBIN,TOTAL 1.1 mg/dL (0.2-1.3); CALCIUM 8.4 mg/dl (8.6-10.4); POTASSIUM 4.7 mmol/L (3.6-5.2); TOTAL PROTEIN 6.9 g/dL (6.3-8.3)
[2017-05-26] MEDS ORDERED: Dextrose 5%/0.45% NS 1,000 ML IV SCH (09:30)
[2017-05-26] MEDS ORDERED: Pneumococcal 23-Valent Vaccine SC ONE (14:00)
[2017-05-26 14:50] VITALS: PULSE 50
[2017-05-26 15:24] VITALS: BP 168/86; RESP 20; TEMP 97.8; O2SAT 95
[2017-05-26] MEDS ORDERED: Bacitracin 50,000 UNIT in Sodium Chloride 0.9% Irrig 1,000 ML IR SCH (16:15)
--- NOTE | 2017-05-26 17:25 | CP.PCM.DIS ---
Provider - Provider Date of Admission: 05/24/17 12:04 Attending physician: Han George Jr, MD Consults: Cards: Silvana Chand Time Spent in preparation of Discharge (in minutes): 45 Diagnosis - Discharge Diagnosis (1) Orthostatic dizziness Status: Acute Priority: Medium (2) CAD (coronary artery disease) Status: Chronic Priority: Medium (3) Afib Status: Chronic (4) Diabetes Status: Chronic Hospital Course - Lab Results Lab Results: Most Recent Lab Values WBC 7.1 K/uL (4.8-10.8) 05/26/17 07:39 RBC 4.12 Mil/uL (4.40-5.90) L 05/26/17 07:39 Hgb 13.0 g/dL (12.0-18.0) 05/26/17 07:39 Hct 37.9 % (35.0-51.0) 05/26/17 07:39 MCV 92.0 fL (80.0-94.0) 05/26/17 07:39 MCH 31.4 pg (27.0-31.0) H 05/26/17 07:39 MCHC 34.2 g/dL (33.0-37.0) 05/26/17 07:39 RDW 13.3 % (11.5-14.5) 05/26/17 07:39 Plt Count 134 K/uL (130-400) 05/26/17 07:39 MPV 9.9 fL (7.2-11.7) 05/26/17 07:39 Neut % (Auto) 68.6 % (50.0-75.0) 05/26/17 07:39 Lymph % (Auto) 16.9 % (20.0-40.0) L 05/26/17 07:39 [place] % (Auto) 10.3 % (0.0-10.0) H 05/26/17 07:39 Eos % (Auto) 3.5 % (0.0-4.0) 05/26/17 07:39 Baso % (Auto) 0.7 % (0.0-2.0) 05/26/17 07:39 Neut # 4.9 K/uL (1.8-7.0) 05/26/17 07:39 Lymph # 1.2 K/uL (1.0-4.3) 05/26/17 07:39 [place] # 0.7 K/uL (0.0-0.8) 05/26/17 07:39 Eos # 0.2 K/uL (0.0-0.7) 05/26/17 07:39 Baso # 0.1 K/uL (0.0-0.2) 05/26/17 07:39 Differential Comment 05/25/17 08:38 PT 19.2 SECONDS (9.7-12.2) H D 05/26/17 07:39 INR 1.7 D 05/26/17 07:39 APTT 46 SECONDS (21-34) H 05/24/17 10:08 Sodium 137 mmol/L (132-148) 05/26/17 07:39 Potassium 4.7 mmol/L (3.6-5.2) 05/26/17 07:39 Chloride 103 mmol/L (98-107) 05/26/17 07:39 Carbon Dioxide 25 mmol/L (22-30) 05/26/17 07:39 Anion Gap 14 (10-20) 05/26/17 07:39 BUN 32 mg/dL (9-20) H 05/26/17 07:39 Creatinine 1.9 mg/dL (0.8-1.5) H 05/26/17 07:39 Est GFR ( Amer) 43 05/26/17 07:39 Est GFR (Non-Af Amer) 36 05/26/17 07:39 POC Glucose (mg/dL) 120 mg/dL (65-110) H 05/26/17 16:26 Random Glucose 134 mg/dL (75-110) H 05/26/17 07:39 Hemoglobin A1c 7.6 % (4.2-6.5) H 05/25/17 08:38 Calcium 8.4 mg/dl (8.6-10.4) L 05/26/17 07:39 Total Bilirubin 1.1 mg/dL (0.2-1.3) 05/26/17 07:39 AST 29 U/L (17-59) 05/26/17 07:39 ALT 42 U/L (21-72) 05/26/17 07:39 Alkaline Phosphatase 61 U/L (38-126) 05/26/17 07:39 Total Creatine Kinase 169 U/L (55-170) 05/24/17 10:08 CK-MB (Mass) 3.44 ng/mL (0.0-3.38) H 05/24/17 10:08 Troponin I 0.0130 ng/mL (0.00-0.120) 05/24/17 10:08 NT-Pro-B Natriuret Pep 712 pg/mL (0-900) 05/24/17 10:08 Total Protein 6.9 g/dL (6.3-8.3) 05/26/17 07:39 Albumin 3.9 g/dL (3.5-5.0) 05/26/17 07:39 Globulin 3.0 gm/dL (2.2-3.9) 05/26/17 07:39 Albumin/Globulin Ratio 1.3 (1.0-2.1) 05/26/17 07:39 TSH 3rd Generation 4.02 mIU/L (0.46-4.68) 05/25/17 08:38 Urine Color Yellow (YELLOW) 05/24/17 11:35 Urine Clarity Clear (Clear) 05/24/17 11:35 Urine pH 7.0 (5.0-8.0) 05/24/17 11:35 Ur Specific [place] 1.012 (1.003-1.030) 05/24/17 11:35 Urine Protein Negative mg/dL (NEGATIVE) 05/24/17 11:35 Urine Glucose (UA) Normal mg/dL (Normal) 05/24/17 11:35 Urine Ketones Negative mg/dL (NEGATIVE) 05/24/17 11:35 Urine Blood Negative (NEGATIVE) 05/24/17 11:35 Urine Nitrate Negative (NEGATIVE) 05/24/17 11:35 Urine Bilirubin Negative (NEGATIVE) 05/24/17 11:35 Urine Urobilinogen Normal mg/dL (0.2-1.0) 05/24/17 11:35 Ur Leukocyte Esterase Neg [place]/uL (Negative) 05/24/17 11:35 Urine WBC (Auto) < 1 /hpf (0-5) 05/24/17 11:35 Urine RBC (Auto) < 1 /hpf (0-3) 05/24/17 11:35 - Hospital Course Hospital Course: On Admission: Patient is 67WM who comes to the ER by 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 The facility security officer at the school told him he was too unsteady to walk w/o assistance. The administration called the ambulance to transfer him to the hospital. The pateint states this has happened one time prior in which he went home and called his PMD in the morning. He was not hospitlized at that time. He states he has stage 3 CKD and only drinks 2 classes of water a day. Nothing makes it better or worse. He states that he is weak and denies room spinning or lightheadedness. No SOB or chest pain. Can go up 40 stairs without feeling weak. Patient was taken off his amiodarone and given a fluid bolus. Cardio was consulted. after review they decided he would need a pacemaker. Dr Pina saw the patient and scheduled him for a pacemaker to be done as an outpatient. The patient was dishcared in a stable condition and instructed to hold his coumadin. Discharge Exam - Head Exam Head Exam: ATRAUMATIC, NORMAL INSPECTION, NORMOCEPHALIC - Eye Exam Eye Exam: EOMI Pupil Exam: NORMAL ACCOMODATION - ENT Exam ENT Exam: Mucous Membranes Moist - Respiratory Exam Respiratory Exam: Clear to PA & Lateral, UNREMARKABLE - Cardiovascular Exam Cardiovascular Exam: REGULAR RHYTHM - GI/Abdominal Exam GI & Abdominal Exam: Normal Bowel Sounds, Soft. absent: Tenderness - Neurological Exam Neurological exam: Alert, Oriented x3 - Psychiatric Exam Psychiatric exam: Normal Affect, Normal Mood - Skin Skin Exam: Dry, Intact, Normal Color, Warm Discharge Plan - Follow Up Plan Condition: STABLE Disposition: HOME/ ROUTINE Instructions: Heart Failure (DC), Coronary Artery Disease (DC), Pacemaker (DC) , Bradycardia (DC) Additional Instructions: Patient is stable for d/c Do not take your coumadin continue all other medications Please go to [facility] on monday for pacemaker with Dr. Pina Referrals: Jose Maria Pina MD [Medical Doctor] -
--- NOTE | 2017-05-26 23:40 | CP.PCM.CON ---
Past Patient History - Past Medical History & Family History Past Medical History?: Yes - Past Social History Smoking Status: Never Smoked - CARDIAC Hx Cardia Arrhythmia: Yes Hx Congestive Heart Failure: Yes Hx Hypertension: Yes - PULMONARY Hx Respiratory Disorders: No - NEUROLOGICAL Hx Neurological Disorder: No - HEENT Hx HEENT Problems: No - RENAL Hx Renal Failure: Yes - ENDOCRINE/METABOLIC Hx Diabetes Mellitus Type 2: Yes - HEMATOLOGICAL/ONCOLOGICAL Hx Blood Disorders: No - INTEGUMENTARY Hx Dermatological Problems: No - MUSCULOSKELETAL/RHEUMATOLOGICAL Hx Gout: Yes - GASTROINTESTINAL Hx Gastrointestinal Disorders: No - GENITOURINARY/GYNECOLOGICAL Hx Genitourinary Disorders: No - PSYCHIATRIC Hx Substance Use: No - SURGICAL HISTORY Hx Surgeries: Yes Hx Coronary Artery Bypass Graft: Yes Hx Valve Replacement: Yes Other/Comment: Mitral valve replacement. Tricuspid valve repair - ANESTHESIA Hx Anesthesia: Yes Hx Anesthesia Reactions: No Meds Allergies/Adverse Reactions: Allergies Allergy/AdvReac Type Severity Reaction Status Date / Time No Known Allergies Allergy Unverified 05/24/17 09:37 Physical Exam - Constitutional Appears: Well - Head Exam Head Exam: ATRAUMATIC, NORMAL INSPECTION, NORMOCEPHALIC - Eye Exam Eye Exam: EOMI, Normal appearance, PERRL Pupil Exam: NORMAL ACCOMODATION, PERRL - ENT Exam ENT Exam: Mucous Membranes Moist, Normal Exam - Neck Exam Neck exam: Positive for: Normal Inspection - Respiratory Exam Respiratory Exam: Decreased Breath Sounds - Cardiovascular Exam Cardiovascular Exam: REGULAR RHYTHM, +S1, +S2 - GI/Abdominal Exam GI & Abdominal Exam: Diminished Bowel Sounds, Soft - Rectal Exam Rectal Exam: Deferred Results - Vital Signs Recent Vital Signs: Last Vital Signs Temp 97.8 F 05/26/17 15:23 Pulse 50 L 05/26/17 15:23 Resp 20 05/26/17 15:23 BP 168/86 H 05/26/17 15:23 Pulse Ox 95 05/26/17 15:23 - Labs Result Diagrams: 05/26/17 07:39 05/26/17 07:39 Labs: Laboratory Results - last 24 hr 05/26/17 05/26/17 05/26/17 06:43 07:39 07:39 WBC 7.1 RBC 4.12 L Hgb 13.0 Hct 37.9 MCV 92.0 MCH 31.4 H MCHC 34.2 RDW 13.3 Plt Count 134 MPV 9.9 Neut % (Auto) 68.6 Lymph % (Auto) 16.9 L [place] % (Auto) 10.3 H Eos % (Auto) 3.5 Baso % (Auto) 0.7 Neut # 4.9 Lymph # 1.2 [place] # 0.7 Eos # 0.2 Baso # 0.1 PT INR Sodium 137 Potassium 4.7 Chloride 103 Carbon Dioxide 25 Anion Gap 14 BUN 32 H Creatinine 1.9 H Est GFR ( Amer) 43 Est GFR (Non-Af Amer) 36 POC Glucose (mg/dL) 134 H Random Glucose 134 H Calcium 8.4 L Total Bilirubin 1.1 AST 29 ALT 42 Alkaline Phosphatase 61 Total Protein 6.9 Albumin 3.9 Globulin 3.0 Albumin/Globulin Ratio 1.3 05/26/17 05/26/17 05/26/17 07:39 11:04 16:26 WBC RBC Hgb Hct MCV MCH MCHC RDW Plt Count MPV Neut % (Auto) Lymph % (Auto) [place] % (Auto) Eos % (Auto) Baso % (Auto) Neut # Lymph # [place] # Eos # Baso # PT 19.2 H D INR 1.7 D Sodium Potassium Chloride Carbon Dioxide Anion Gap BUN Creatinine Est GFR ( Amer) Est GFR (Non-Af Amer) POC Glucose (mg/dL) 126 H 120 H Random Glucose Calcium Total Bilirubin AST ALT Alkaline Phosphatase Total Protein Albumin Globulin Albumin/Globulin Ratio
[2017-05-27] MEDS ORDERED: Levothyroxine 50 MCG TAB PO SCH (06:30)
== END 2017-05-26 18:56 | disposition home or self-care (01) | DRG 309 ==
LOC: C.ER 09:22 → C.6T 11:54 → OBSVTOIN 12:04 → UNDOADMOB 12:04 → INTOOBSV 12:04 → C.9E 12:04 → C.6T 13:07
PROVIDERS: ADMIT Internal Medicine; ATTEND Internal Medicine
DX: R00.1 Bradycardia, unspecified (principal); I13.0 Hypertensive heart and chronic kidney disease with heart failure and stage 1 through stage 4 chronic kidney disease, or unspecified chronic kidney disease; I42.9 Cardiomyopathy, unspecified; E11.22 Type 2 diabetes mellitus with diabetic chronic kidney disease; I50.9 Heart failure, unspecified; R42 Dizziness and giddiness; E78.00 Pure hypercholesterolemia, unspecified; N40.0 Benign prostatic hyperplasia without lower urinary tract symptoms; I25.10 Atherosclerotic heart disease of native coronary artery without angina pectoris; I25.2 Old myocardial infarction; I48.0 Paroxysmal atrial fibrillation; M10.9 Gout, unspecified; N18.3 Chronic kidney disease, stage 3 (moderate); Z95.1 Presence of aortocoronary bypass graft; Z95.2 Presence of prosthetic heart valve